=== PATIENT | female | born 1940 | race Caucasian/White ===

== ENCOUNTER 2016-04-06 08:38 | Outpatient (CLI) ==
[2014-04-29 17:27] VITALS: BMI 27.3
[2016-04-06 15:47] LABS: BASOPHILS # (AUTO) 0.1 K/uL (0-0.2); BASOPHILS % (AUTO) 0.8 % (0.0-3.0); EOSINOPHILS # (AUTO) 0.1 K/ul (0.0-0.7); EOSINOPHILS % (AUTO) 0.9 % (0.0-7.0); HEMATOCRIT 39.9 % (37.0-47.0); HEMOGLOBIN 12.5 g/dl (12.0-16.0); IMMATURE GRANULOCYTE % (AUTO) 0.5 % (0.0-5.0); LYMPHOCYTES # (AUTO) 1.3 K/uL (0.60-3.4); LYMPHOCYTES % (AUTO) 19.6 (10.0-50.0); MEAN CORPUSCULAR HEMOGLOBIN 28.9 pg (27.0-31.0); MEAN CORPUSCULAR HGB CONC 31.3 (31.8-35.4); MEAN CORPUSCULAR VOLUME 92.1 fl (81.0-99.0); MONOCYTES # (AUTO) 0.4 K/uL (0.4-2.0); MONOCYTES % (AUTO) 6.4 (0-10); NEUTROPHILS # (AUTO) 4.6 K/ul (2.0-6.9); NEUTROPHILS % (AUTO) 71.8; PLATELET COUNT 253 10^3/uL (140-440); RED BLOOD COUNT 4.33 10^6/ul (4.20-5.40); WHITE BLOOD COUNT 6.39 K/ul (4.6-10.2)
[2016-04-06 16:02] LABS: BILIRUBIN,URINE 1+ (NEGATIVE); KETONES,URINE Trace (NEGATIVE); LEUKOCYTE ESTERASE ,URINE Negative (NEGATIVE); NITRITE,URINE Negative (NEGATIVE); PH,URINE 5.5 (5-9); PROTEIN,URINE Negative (NEGATIVE); URINE, BLOOD Negative (NEGATIVE)
[2016-04-06 16:08] LABS: ADD URINE MICROSCOPIC NO
[2016-04-06 16:30] LABS: ALBUMIN 3.8 g/dL (3.4-5.0); ALBUMIN/GLOBULIN RATIO 1.12; ANION GAP 12.4; BILIRUBIN,TOTAL 0.96 mg/dL (0.00-1.20); BUN/CREATININE RATIO 15.46; CALCIUM 9.5 mg/dL (8.2-10.2); CHOL/HDL RATIO 3.8 (4.5-5.5); CREATININE 0.97 mg/dL (0.60-1.30); POTASSIUM 4.4 mmol/L (3.5-5.10); TOTAL PROTEIN 7.2 g/dL (5.8-8.1)
== END 2016-04-06 08:39 | disposition home or self-care (01) ==
LOC: LAB 08:38
PROVIDERS: ATTEND General Practice
DX: E78.5 Hyperlipidemia, unspecified (principal); I10 Essential (primary) hypertension; R53.83 Other fatigue; Z79.899 Other long term (current) drug therapy
CPT/HCPCS: 36415; 80053; 80061; 81001; 84443; 85025

== ENCOUNTER 2016-06-04 08:33 | Outpatient (CLI) ==
[2014-04-29 17:27] VITALS: BMI 27.3
[2016-06-04 09:09] LABS: HEMATOCRIT 38.6 % (37.0-47.0); HEMOGLOBIN 12.4 g/dl (12.0-16.0); MEAN CORPUSCULAR HEMOGLOBIN 29.3 pg (27.0-31.0); MEAN CORPUSCULAR HGB CONC 32.1 (31.8-35.4); MEAN CORPUSCULAR VOLUME 91.3 fl (81.0-99.0); RED BLOOD COUNT 4.23 10^6/ul (4.20-5.40); WHITE BLOOD COUNT 4.29 K/ul (4.6-10.2)
[2016-06-04 09:33] LABS: BILIRUBIN,URINE Negative (NEGATIVE); KETONES,URINE Negative (NEGATIVE); LEUKOCYTE ESTERASE ,URINE Negative (NEGATIVE); NITRITE,URINE Negative (NEGATIVE); PROTEIN,URINE Negative (NEGATIVE); URINE, BLOOD Negative (NEGATIVE)
[2016-06-04 09:34] LABS: ADD URINE MICROSCOPIC NO
[2016-06-04 09:51] LABS: ALBUMIN 3.6 g/dL (3.4-5.0); BUN/CREATININE RATIO 10.52; CALCIUM 9.5 mg/dL (8.2-10.2); CREATININE 0.95 mg/dL (0.60-1.30); MAGNESIUM 2.1 mg/dL (1.7-2.2); PHOSPHORUS 2.8 mg/dL (2.8-4.1); URIC ACID 3.5 mg/dL (2.4-6.0)
[2016-06-05 07:15] LABS: URINE CREATINE 33.4 mg/dL (Not Estab.)
[2016-06-07 08:29] LABS: URINE PROTEIN/CREATININE RATIO < 120 mg/g creat (0-200)
== END 2016-06-04 08:34 | disposition home or self-care (01) ==
LOC: LAB 08:33
PROVIDERS: ATTEND Internal Medicine Nephrology
DX: N18.3 Chronic kidney disease, stage 3 (moderate) (principal); I10 Essential (primary) hypertension
CPT/HCPCS: 36415; 80069; 81001; 82306; 82570; 83735; 83970; 84156; 84550; 85027

== ENCOUNTER 2016-08-06 08:48 | Outpatient (CLI) ==
[2014-04-29 17:27] VITALS: BMI 27.3
[2016-08-06 12:53] LABS: BASOPHILS % (AUTO) 0.8 % (0.0-3.0); EOSINOPHILS # (AUTO) 0.1 K/ul (0.0-0.7); EOSINOPHILS % (AUTO) 1.3 % (0.0-7.0); HEMATOCRIT 38.9 % (37.0-47.0); HEMOGLOBIN 12.4 g/dl (12.0-16.0); LYMPHOCYTES # (AUTO) 0.9 K/uL (0.60-3.4); LYMPHOCYTES % (AUTO) 18.8 (10.0-50.0); MEAN CORPUSCULAR HEMOGLOBIN 29.2 pg (27.0-31.0); MEAN CORPUSCULAR HGB CONC 31.9 (31.8-35.4); MEAN CORPUSCULAR VOLUME 91.7 fl (81.0-99.0); MONOCYTES # (AUTO) 0.3 K/uL (0.4-2.0); MONOCYTES % (AUTO) 6.5 (0-10); NEUTROPHILS # (AUTO) 3.5 K/ul (2.0-6.9); NEUTROPHILS % (AUTO) 72.6; PLATELET COUNT 206 10^3/uL (140-440); RED BLOOD COUNT 4.24 10^6/ul (4.20-5.40); WHITE BLOOD COUNT 4.79 K/ul (4.6-10.2)
[2016-08-06 13:08] LABS: BILIRUBIN,URINE 2+ (NEGATIVE); KETONES,URINE 1+ (NEGATIVE); LEUKOCYTE ESTERASE ,URINE Negative (NEGATIVE); NITRITE,URINE Positive (NEGATIVE); PROTEIN,URINE 1+ (NEGATIVE); URINE, BLOOD Trace-intact (NEGATIVE)
[2016-08-06 13:18] LABS: ADD URINE MICROSCOPIC YES
[2016-08-06 13:27] LABS: ALBUMIN 3.9 g/dL (3.4-5.0); ALBUMIN/GLOBULIN RATIO 1.26; ANION GAP 13.1; BILIRUBIN,TOTAL 0.96 mg/dL (0.00-1.20); BUN/CREATININE RATIO 8.51; CALCIUM 9.8 mg/dL (8.2-10.2); CHOL/HDL RATIO 3.3 (4.5-5.5); CREATININE 0.94 mg/dL (0.60-1.30); POTASSIUM 4.1 mmol/L (3.5-5.10)
== END 2016-08-06 08:49 | disposition home or self-care (01) ==
LOC: LAB 08:48
PROVIDERS: ATTEND General Practice
DX: E78.5 Hyperlipidemia, unspecified (principal); I10 Essential (primary) hypertension; K21.9 Gastro-esophageal reflux disease without esophagitis; K51.919 Ulcerative colitis, unspecified with unspecified complications; N18.3 Chronic kidney disease, stage 3 (moderate); Z79.899 Other long term (current) drug therapy
CPT/HCPCS: 36415; 80053; 80061; 81001; 85025

== ENCOUNTER 2016-08-12 07:32 | Outpatient (CLI) ==
[2014-04-29 17:27] VITALS: BMI 27.3
== END 2016-08-12 07:33 | disposition home or self-care (01) ==
LOC: CAR 07:32
PROVIDERS: ATTEND General Practice
DX: I49.9 Cardiac arrhythmia, unspecified (principal)
CPT/HCPCS: 93005; 93010

== ENCOUNTER 2016-12-10 14:29 | Outpatient (CLI) ==
[2014-04-29 17:27] VITALS: BMI 27.3
[2016-12-10 14:56] LABS: BASOPHILS % (AUTO) 0.6 % (0.0-3.0); EOSINOPHILS # (AUTO) 0.1 K/ul (0.0-0.7); EOSINOPHILS % (AUTO) 1.3 % (0.0-7.0); HEMATOCRIT 40.3 % (37.0-47.0); IMMATURE GRANULOCYTE % (AUTO) 0.2 % (0.0-5.0); MEAN CORPUSCULAR HEMOGLOBIN 30.1 pg (27.0-31.0); MEAN CORPUSCULAR HGB CONC 32.3 (31.8-35.4); MEAN CORPUSCULAR VOLUME 93.3 fl (81.0-99.0); MONOCYTES # (AUTO) 0.3 K/uL (0.4-2.0); MONOCYTES % (AUTO) 6.7 (0-10); NEUTROPHILS # (AUTO) 3.4 K/ul (2.0-6.9); NEUTROPHILS % (AUTO) 71.2; PLATELET COUNT 205 10^3/uL (140-440); RED BLOOD COUNT 4.32 10^6/ul (4.20-5.40)
[2016-12-10 15:01] LABS: BILIRUBIN,URINE 2+ (NEGATIVE); KETONES,URINE 1+ (NEGATIVE); LEUKOCYTE ESTERASE ,URINE Negative (NEGATIVE); NITRITE,URINE Positive (NEGATIVE); PROTEIN,URINE 1+ (NEGATIVE); URINE, BLOOD Negative (NEGATIVE)
[2016-12-10 15:03] LABS: ALBUMIN/GLOBULIN RATIO 1.11; ANION GAP 15.2; BILIRUBIN,TOTAL 1.45 mg/dL (0.00-1.20); BUN/CREATININE RATIO 9.89; CALCIUM 10.2 mg/dL (8.2-10.2); CHOL/HDL RATIO 2.9 (4.5-5.5); CREATININE 0.91 mg/dL (0.60-1.30); POTASSIUM 4.2 mmol/L (3.5-5.10); TOTAL PROTEIN 7.6 g/dL (5.8-8.1)
[2016-12-10 15:05] LABS: ADD URINE MICROSCOPIC YES
== END 2016-12-10 14:30 | disposition home or self-care (01) ==
LOC: LAB 14:29
PROVIDERS: ATTEND General Practice
DX: E78.5 Hyperlipidemia, unspecified (principal); I10 Essential (primary) hypertension; N18.3 Chronic kidney disease, stage 3 (moderate); K51.919 Ulcerative colitis, unspecified with unspecified complications; K21.9 Gastro-esophageal reflux disease without esophagitis; Z79.899 Other long term (current) drug therapy
CPT/HCPCS: 36415; 80053; 80061; 81001; 85025; 87086

== ENCOUNTER 2017-04-11 13:06 | Outpatient (CLI) ==
[2014-04-29 17:27] VITALS: BMI 27.3
== END 2017-04-11 13:07 | disposition home or self-care (01) ==
LOC: LAB 13:06
PROVIDERS: ATTEND General Practice
DX: E78.5 Hyperlipidemia, unspecified (principal); I10 Essential (primary) hypertension; K21.9 Gastro-esophageal reflux disease without esophagitis; N18.3 Chronic kidney disease, stage 3 (moderate); Z79.899 Other long term (current) drug therapy
CPT/HCPCS: 36415; 80053; 80061; 81001; 85025

== ENCOUNTER 2017-04-13 11:59 | Outpatient (CLI) ==
[2014-04-29 17:27] VITALS: BMI 27.3
== END 2017-04-13 12:00 | disposition home or self-care (01) ==
LOC: CAR 11:59
PROVIDERS: ATTEND General Practice
DX: I49.9 Cardiac arrhythmia, unspecified (principal)
CPT/HCPCS: 93005; 93010

== ENCOUNTER 2017-06-09 12:11 | Outpatient (CLI) ==
[2014-04-29 17:27] VITALS: BMI 27.3
== END 2017-06-09 12:12 | disposition home or self-care (01) ==
LOC: LAB 12:11
PROVIDERS: ATTEND Internal Medicine Nephrology
DX: N18.3 Chronic kidney disease, stage 3 (moderate) (principal); I10 Essential (primary) hypertension
CPT/HCPCS: 36415; 80069; 81001; 82306; 82570; 83735; 83970; 84156; 84550; 85027

== ENCOUNTER 2017-08-04 11:21 | Outpatient (CLI) ==
[2014-04-29 17:27] VITALS: BMI 27.3
== END 2017-08-04 11:22 | disposition home or self-care (01) ==
LOC: FCC-LAB 11:21
PROVIDERS: ATTEND General Practice
DX: E78.5 Hyperlipidemia, unspecified (principal); I10 Essential (primary) hypertension; K51.919 Ulcerative colitis, unspecified with unspecified complications; N18.3 Chronic kidney disease, stage 3 (moderate); K21.9 Gastro-esophageal reflux disease without esophagitis; Z79.899 Other long term (current) drug therapy
CPT/HCPCS: 36415; 80053; 80061; 81001; 85025

== ENCOUNTER 2017-12-12 16:27 | Outpatient (CLI) ==
[2014-04-29 17:27] VITALS: BMI 27.3
== END 2017-12-12 16:28 | disposition home or self-care (01) ==
LOC: FCC-LAB 16:27
PROVIDERS: ATTEND General Practice
DX: D51.9 Vitamin B12 deficiency anemia, unspecified (principal)
CPT/HCPCS: 36415; 82525; 83735; 84255; 84443; 84630

== ENCOUNTER 2017-12-16 12:44 | Outpatient (CLI) ==
[2014-04-29 17:27] VITALS: BMI 27.3
--- NOTE | 2017-12-19 14:49 | HOLTER ---
PATIENT INFORMATION AND COMMENTS Attending Physician: DR. RAHEL RICHTER Indications: CHEST PAIN __ Patient Medications: NO MEDICATION LIST __ Pre-procedure Summary: Protocol: Standard Heart Rate Started: 12/16/17 1320 Minimum: 48 BPM Weight: N/A Ended: 12/17/17 1320 Maximum: 147 BPM Height: 69" Duration: 24 HOURS Average: 71 BPM _ INTERPRETATIONS/OBSERVATIONS: 1. BASIC RHYTHM: SINUS, RATE 48 BPM TO 140 BPM, AVERAGE 70 BPM 2. PVC'S --2% OF BEATS SCANNED --NO V-TACH 3. PAC'S INFREQUENT 4. SHORT RUNS OF SVT --4 TO 8 BEATS--FOUR TIMES NOTED, NO SUSTAINED TACHYARRHYTHMIAS NOTED 5. NO ST-T WAVE CHANGES FROM BASELINE 6. NO CORRELATION WITH ACTIVITY LOG MTDD
== END 2017-12-16 12:45 | disposition home or self-care (01) ==
LOC: CAR 12:44
PROVIDERS: ATTEND General Practice
DX: R07.9 Chest pain, unspecified (principal); I10 Essential (primary) hypertension
CPT/HCPCS: 93005; 93010; 93227

== ENCOUNTER 2018-04-17 08:12 | Outpatient (CLI) ==
[2014-04-29 17:27] VITALS: BMI 27.3
== END 2018-04-17 08:13 | disposition home or self-care (01) ==
LOC: RHC-LAB 08:12
PROVIDERS: ATTEND General Practice
DX: K51.919 Ulcerative colitis, unspecified with unspecified complications (principal); N18.3 Chronic kidney disease, stage 3 (moderate); I71.2 Thoracic aortic aneurysm, without rupture; E78.5 Hyperlipidemia, unspecified; Z79.899 Other long term (current) drug therapy
CPT/HCPCS: 36415; 80053; 80061; 81001; 85025

== ENCOUNTER 2018-06-08 08:23 | Outpatient (CLI) ==
[2014-04-29 17:27] VITALS: BMI 27.3
== END 2018-06-08 08:24 | disposition home or self-care (01) ==
LOC: LAB 08:23
PROVIDERS: ATTEND Internal Medicine Nephrology
DX: N18.3 Chronic kidney disease, stage 3 (moderate) (principal); I10 Essential (primary) hypertension
CPT/HCPCS: 36415; 80069; 81001; 82570; 83735; 83970; 84156; 84550; 85025; 85027

== ENCOUNTER 2018-07-10 11:00 | Outpatient (CLI) ==
[2014-04-29 17:27] VITALS: BMI 27.3
--- NOTE | 2018-07-10 11:52 | CT ---
EXAM: CT of the abdomen pelvis without contrast History: Epigastric abdominal pain. Comparison: CT abdomen pelvis 01/11/2014 Technique: Multiplanar CT images through the abdomen pelvis were obtained without the administration of IV contrast Findings: Lung bases are clear. No acute osseous abnormalities. Osteopenia. Degenerative changes of the spine. Status post cholecystectomy. Atherosclerotic vascular calcifications. No focal liver or splenic les ions. No renal stones and no hydronephrosis. No peripancreatic inflammation. Adrenal glands are un remarkable. No bladder wall thickening. No bowel obstruction. Index is not seen. No free air and no ascites. Atrophic uterus. No perirectal inflammation. No wilson inflammatory stranding. Impression: No definite acute intra-abdominal or pelvic process identified within limitations of a n oncontrast study. If pain and symptoms persist, recommend further evaluation with IV contrast enhanc ed CT.
== END 2018-07-10 11:01 | disposition home or self-care (01) ==
LOC: RAD 11:00
PROVIDERS: ATTEND General Practice
DX: R10.13 Epigastric pain (principal)

== ENCOUNTER 2018-08-29 08:00 | Outpatient (CLI) ==
[2014-04-29 17:27] VITALS: BMI 27.3
== END 2018-08-29 08:01 | disposition home or self-care (01) ==
LOC: RHC-LAB 08:00
PROVIDERS: ATTEND General Practice
DX: N18.3 Chronic kidney disease, stage 3 (moderate) (principal); E78.5 Hyperlipidemia, unspecified; Z79.899 Other long term (current) drug therapy
CPT/HCPCS: 36415; 80053; 80061; 81001; 85025